=== PATIENT | male | born 1955 | race Caucasian/White ===

== ENCOUNTER → 2021-11-26 | Outpatient (CLI) | payer BC, MEDICARE, OTHER ==
[~2021-11-26] MED LIST: ASPI81TA26 PO; ATOR1TAB21 PO; GLUC1CAP10 PO; LANS15CA PO; LISI10TA22 PO; NITR0.4S14 SL; PANT40TA29 PO; PROB250C PO; SYNT150T PO; VITA1CAP25 PO
== END ==
LOC: M LABSMTC 10:59
PROVIDERS: ATTEND Anesthesiology
DX: Z01.812 Encounter for preprocedural laboratory examination (principal); Z20.822 Contact with and (suspected) exposure to COVID-19

== ENCOUNTER 2021-12-01 08:14 | Day surgery (SDC) | payer MEDICARE, OTHER ==
[~2021-12-01] VITALS: Ht 182.9 cm; Wt 109.3 kg
[~2021-12-01 08:14] MED LIST changes: +NS 1,000 ML IV ONE
[2021-12-01] MEDS ORDERED: propofoL 200 MG/20 ML VIAL As Ordered ONE ×3 (10:46→11:24)
[2021-12-01] MEDS ORDERED: LIDOCAINE 2% 100MG/5ML SDV (FOR ANES.) As Ordered ONE (10:46)
[2021-12-01 11:52] VITALS: BP 123/56
== END 2021-12-01 12:02 | disposition home or self-care (01) ==
LOC: M OPP 08:14
PROVIDERS: ATTEND Internal Medicine Gastroenterology
DX: R93.3 Abnormal findings on diagnostic imaging of other parts of digestive tract (principal); K57.32 Diverticulitis of large intestine without perforation or abscess without bleeding; R12 Heartburn; K31.7 Polyp of stomach and duodenum; K57.30 Diverticulosis of large intestine without perforation or abscess without bleeding; K64.8 Other hemorrhoids; I10 Essential (primary) hypertension; E78.5 Hyperlipidemia, unspecified; E03.9 Hypothyroidism, unspecified; K21.9 Gastro-esophageal reflux disease without esophagitis; Z85.850 Personal history of malignant neoplasm of thyroid; Z92.3 Personal history of irradiation; Z95.5 Presence of coronary angioplasty implant and graft; Z79.82 Long term (current) use of aspirin; Z79.899 Other long term (current) drug therapy; Z80.1 Family history of malignant neoplasm of trachea, bronchus and lung; Z82.49 Family history of ischemic heart disease and other diseases of the circulatory system

== ENCOUNTER → 2022-01-14 | Outpatient (CLI) | payer MEDICARE, OTHER ==
[~2022-01-14] MED LIST changes: -NS 1,000 ML IV ONE
== END ==
LOC: M RAD 08:13
PROVIDERS: ATTEND Physician Assistant Medical
DX: R16.0 Hepatomegaly, not elsewhere classified (principal)

== ENCOUNTER → 2022-08-10 | Outpatient (CLI) | payer MEDICARE, OTHER | LOC: M LAB 10:31 | PROVIDERS: ATTEND Physician Assistant Medical | DX: R16.0 Hepatomegaly, not elsewhere classified (principal); R74.01 Elevation of levels of liver transaminase levels ==

== ENCOUNTER → 2023-06-22 | Outpatient (CLI) | payer MEDICARE, OTHER | LOC: M RAD 09:05 | PROVIDERS: ATTEND Physician Assistant Medical | DX: R16.0 Hepatomegaly, not elsewhere classified (principal); K76.0 Fatty (change of) liver, not elsewhere classified ==

== ENCOUNTER 2025-03-23 07:49 | Day surgery (SDC) | payer MEDICARE, OTHER ==
[~2025-03-23] VITALS: Ht 182.9 cm; Wt 96.2 kg
[~2025-03-23 07:49] MED LIST changes: +ATOR40TA75 PO; +JARD1TAB PO
[2025-03-23] MEDS ORDERED: LIDOCAINE 2% 100 MG/5 ML SDV (FOR ANES.) As Ordered ONE (09:40)
[2025-03-23] MEDS ORDERED: GLYCOPYRROLATE INJ 0.2 MG/ML 2 ML VIAL As Ordered ONE (09:57)
[2025-03-23 10:11] VITALS: TEMP 97.4
[2025-03-23 10:21] VITALS: BP 116/61; O2SAT 96
== END 2025-03-23 10:26 | disposition home or self-care (01) ==
LOC: M OPP 07:49
PROVIDERS: ATTEND Internal Medicine Gastroenterology
DX: Z12.11 Encounter for screening for malignant neoplasm of colon (principal); K57.30 Diverticulosis of large intestine without perforation or abscess without bleeding; Z95.5 Presence of coronary angioplasty implant and graft; Z79.82 Long term (current) use of aspirin; Z79.899 Other long term (current) drug therapy
CPT/HCPCS: G0121; J1596